=== PATIENT | male | born 1950 | race Caucasian/White ===

== ENCOUNTER 2017-06-20 04:38 | Inpatient (IN) | payer OTHER ==
[~2017-06-20] VITALS: Ht 177.8 cm; Wt 108.4 kg
[2017-06-20 04:42] VITALS: Ht 177.8 cm; Wt 108.4 kg
[2017-06-20 05:36] LABS: CALCIUM 9.5 mg/dL (8.5-10.1); CARBON DIOXIDE 26.6 mmol/L (21-32); CHLORIDE SERUM 97 mmol/L (98-107); CREATININE SERUM 0.7 mg/dL (0.7-1.3); GFR1 > 60 mL/min; GLUCOSE SERUM 168 mg/dL (74-106); POTASSIUM SERUM 3.5 mmol/L (3.5-5.1); SODIUM SERUM 127 mmol/L (136-145)
[2017-06-20 05:40] LABS: ALBUMIN 4.2 g/dL (3.4-5.0); ALKALINE PHOSPHATASE 111 U/L (46-116); ALT/SGPT 67 U/L (16-63); AMYLASE 78 U/L (25-115); AST/SGOT 36 U/L (15-37); BILIRUBIN TOTAL 0.56 mg/dL (0.20-1.00); LIPASE 159 IU/L (73-393)
[2017-06-20 05:42] LABS: BASOPHIL % 0.4 % (0-2); PLATELET COUNT 252 x10^3mcL (130-400); RED CELL DISTRIBUTION WIDTH 12.8 % (11.5-14.5)
[2017-06-20] MEDS ORDERED: GOOD SENSE ASPI81 M3 PO (06:16)
[2017-06-20] MEDS ORDERED: AMLODIPINE BES2.5 M1 PO (06:16)
[2017-06-20] MEDS ORDERED: ATENOLOL100 MG PO (06:16)
[2017-06-20 06:54] LABS: microscopic required? NO
[2017-06-20 07:07] LABS: urine erythrocyte NEGATIVE (NEGATIVE)
[2017-06-20 07:11] LABS: T3 TOTAL 1.14 ng/mL
[2017-06-20 07:14] LABS: AMPHETAMINE QUAL UR NONE DETECTED (NEG <=1000)
[2017-06-20 07:15] VITALS: BP 145/77
[2017-06-20 07:15] LABS: MAGNESIUM 1.8 mg/dL (1.8-2.4); PHOSPHOROUS 2.7 mg/dL (2.5-4.9)
[2017-06-20 07:16] LABS: CHOLESTEROL/HDL RATIO 4.8
[2017-06-20 07:32] LABS: FREE T4 1.04 ng/dL (0.76-1.46); FREE THYROXINE INDEX 3.2 ug/dL (1.4-4.5); T4(THYROXINE) 9.6 ug/dL (4.7-13.3)
[2017-06-20 08:07] VITALS: BP 145/77
[2017-06-20 13:00] VITALS: BP 143/75
[2017-06-20 17:52] VITALS: BP 126/63
[2017-06-20 22:17] VITALS: BP 127/72
[2017-06-21 06:16] LABS: BASOPHIL % 0.8 % (0-2); PLATELET COUNT 248 x10^3mcL (130-400); RED CELL DISTRIBUTION WIDTH 12.9 % (11.5-14.5)
[2017-06-21 06:40] LABS: CALCIUM 9.1 mg/dL (8.5-10.1); CARBON DIOXIDE 27.8 mmol/L (21-32); CHLORIDE SERUM 104 mmol/L (98-107); CREATININE SERUM 0.7 mg/dL (0.7-1.3); GFR1 > 60 mL/min; GLUCOSE SERUM 122 mg/dL (74-106); MAGNESIUM 2.3 mg/dL (1.8-2.4); PHOSPHOROUS 3.6 mg/dL (2.5-4.9); POTASSIUM SERUM 4.1 mmol/L (3.5-5.1); SODIUM SERUM 140 mmol/L (136-145)
[2017-06-21 06:41] VITALS: BP 128/70
[2017-06-21 13:15] VITALS: BP 155/81
[2017-06-21 18:02] VITALS: BP 147/77
[2017-06-21 20:56] VITALS: BP 149/76
[2017-06-22 05:30] VITALS: BP 144/74
[2017-06-22 05:40] LABS: CALCIUM 8.6 mg/dL (8.5-10.1); CARBON DIOXIDE 28.2 mmol/L (21-32); CHLORIDE SERUM 102 mmol/L (98-107); CREATININE SERUM 0.8 mg/dL (0.7-1.3); GFR1 > 60 mL/min; GLUCOSE SERUM 118 mg/dL (74-106); PHOSPHOROUS 4.1 mg/dL (2.5-4.9); POTASSIUM SERUM 4.2 mmol/L (3.5-5.1); SODIUM SERUM 137 mmol/L (136-145)
[2017-06-22 05:47] LABS: BASOPHIL % 0 % (0-2); PLATELET COUNT 219 x10^3mcL (130-400); RED CELL DISTRIBUTION WIDTH 12.8 % (11.5-14.5)
[2017-06-22 09:45] VITALS: BP 148/84
[2017-06-22 16:37] VITALS: BP 161/76
[2017-06-22 21:09] VITALS: BP 142/70
[2017-06-23 04:58] VITALS: BP 143/74
[2017-06-23 08:38] VITALS: BP 174/89
[2017-06-23 09:05] LABS: PLATELET COUNT 246 x10^3mcL (130-400); RED CELL DISTRIBUTION WIDTH 12.9 % (11.5-14.5)
[2017-06-23 09:35] LABS: CALCIUM 8.4 mg/dL (8.5-10.1); CARBON DIOXIDE 30.4 mmol/L (21-32); CHLORIDE SERUM 101 mmol/L (98-107); CREATININE SERUM 0.8 mg/dL (0.7-1.3); GFR1 > 60 mL/min; GLUCOSE SERUM 178 mg/dL (74-106); MAGNESIUM 1.8 mg/dL (1.8-2.4); POTASSIUM SERUM 3.7 mmol/L (3.5-5.1); SODIUM SERUM 137 mmol/L (136-145)
[2017-06-23 09:36] LABS: BASOPHIL % 2.5 % (0-2)
[2017-06-23 17:03] VITALS: BP 143/82
[2017-06-23 20:30] VITALS: BP 139/75
[2017-06-24 05:13] VITALS: BP 139/73
[2017-06-24 06:48] LABS: CARBON DIOXIDE 32.9 mmol/L (21-32); CHLORIDE SERUM 104 mmol/L (98-107); CREATININE SERUM 0.7 mg/dL (0.7-1.3); GFR1 > 60 mL/min; GLUCOSE SERUM 99 mg/dL (74-106); MAGNESIUM 2.1 mg/dL (1.8-2.4); PHOSPHOROUS 4.3 mg/dL (2.5-4.9); POTASSIUM SERUM 4.6 mmol/L (3.5-5.1); SODIUM SERUM 141 mmol/L (136-145)
[2017-06-24 07:55] LABS: BASOPHIL % 0.6 % (0-2); PLATELET COUNT 239 x10^3mcL (130-400); RED CELL DISTRIBUTION WIDTH 13.1 % (11.5-14.5)
[2017-06-24 09:12] VITALS: BP 154/75
[2017-06-24] MEDS ORDERED: KEFLEX500 M1 PO (16:55)
[2017-06-24] MEDS ORDERED: LIPI20 PO (16:55)
[2017-06-24 16:56] VITALS: BP 129/63
[2017-06-24] MEDS ORDERED: MOT800 PO (17:12)
[2017-06-24] MEDS ORDERED: BD LACTINEX1.4 MG PO (17:12)
[2017-06-24] MEDS ORDERED: NORCO1 TA2 PO (17:12)
== END 2017-06-24 20:48 | disposition home or self-care (01) | DRG 418 ==
LOC: ED 04:38 → MU 06:08 → DU 06:08 → MU 06-21 11:42
PROVIDERS: Emergency Medicine; Family Medicine; Surgery
PROC: 0FT44ZZ Resection of Gallbladder, Percutaneous Endoscopic Approach (ICD-10-PCS; principal; 2017-06-21 09:00)
DX: K80.62 Calculus of gallbladder and bile duct with acute cholecystitis without obstruction (principal); E87.1 Hypo-osmolality and hyponatremia; I10 Essential (primary) hypertension; E87.8 Other disorders of electrolyte and fluid balance, not elsewhere classified; E78.5 Hyperlipidemia, unspecified; F14.90 Cocaine use, unspecified, uncomplicated; K76.0 Fatty (change of) liver, not elsewhere classified; Z53.29 Procedure and treatment not carried out because of patient's decision for other reasons; E66.9 Obesity, unspecified; E86.0 Dehydration; E78.2 Mixed hyperlipidemia; D64.9 Anemia, unspecified; D72.829 Elevated white blood cell count, unspecified
CPT/HCPCS: 83880; 84439; 94150; 97110-GP; 97116-GP; 97530-GP; J0330; J0696; J1170; J1885; J2250; J2270; J2405; J2704; J2710; J3010; J3490; J7030; J7120; Q0092

== ENCOUNTER 2018-12-26 04:23 | Inpatient (IN) | payer OTHER ==
[~2018-12-26] VITALS: Ht 180.3 cm; Wt 84.4 kg
[~2018-12-26 04:23] MED LIST: AMLODIPINE BES2.5 M1 PO; ATENOLOL100 MG PO; BD LACTINEX1.4 MG PO; GOOD SENSE ASPI81 M3 PO; KEFLEX500 M1 PO; LIPI20 PO; MOT800 PO; NORCO1 TA2 PO
[2018-12-26 04:27] VITALS: Ht 180.3 cm; Wt 84.4 kg
[2018-12-26 05:42] LABS: CALCIUM 9.2 mg/dL (8.5-10.1); CARBON DIOXIDE 27.7 mmol/L (21-32); CHLORIDE SERUM 106 mmol/L (98-107); CREATININE SERUM 0.9 mg/dL (0.7-1.3); GFR1 > 60 mL/min; GLUCOSE SERUM 134 mg/dL (74-106); SODIUM SERUM 143 mmol/L (136-145)
[2018-12-26 05:49] LABS: ALKALINE PHOSPHATASE 122 U/L (46-116); ALT/SGPT 83 U/L (16-63); AST/SGOT 65 U/L (15-37); BILIRUBIN TOTAL 0.62 mg/dL (0.20-1.00); TOTAL PROTEIN, SERUM 7.8 g/dL (6.4-8.2)
[2018-12-26 05:56] LABS: BASOPHIL % 0.5 % (0-2); PLATELET COUNT 270 x10^3mcL (130-400); RED CELL DISTRIBUTION WIDTH 13.3 % (11.5-14.5)
[2018-12-26 07:20] LABS: CHOLESTEROL/HDL RATIO 4.7
[2018-12-26 08:09] VITALS: BP 169/99
[2018-12-26 12:02] VITALS: BP 166/98
[2018-12-26 12:23] VITALS: BP 166/98
[2018-12-26 14:53] VITALS: BP 123/68
[2018-12-26 15:54] VITALS: BP 113/65
== END 2018-12-26 17:38 | disposition short-term general hospital (02) | DRG 282 ==
LOC: ED 04:23 → DU 06:07
PROVIDERS: Emergency Medicine; ADMIT General Practice
DX: I21.3 ST elevation (STEMI) myocardial infarction of unspecified site (principal); I16.0 Hypertensive urgency; I10 Essential (primary) hypertension; E78.5 Hyperlipidemia, unspecified; Z68.28 Body mass index [BMI] 28.0-28.9, adult; Z79.82 Long term (current) use of aspirin; Z90.49 Acquired absence of other specified parts of digestive tract
CPT/HCPCS: 83880; 94150; G0378; J0360; J1650; J2270; Q0092